=== PATIENT | female | born 1935 | race Caucasian/White ===

== ENCOUNTER 2016-10-28 11:53 | Inpatient (IN) | payer OTHER, BC ==
[2016-10-28] MEDS ORDERED: ONDANSETRON 4 MG/2 ML VIAL IVP ONE (12:18)
--- NOTE | 2016-10-28 12:53 | EDPHY ---
H & P Time Seen by Provider: 10/28/16 12:51 HPI/ROS: Chief complaint. unable to eat HPI. 80-year-old female with nausea since October 23. She had a CT of her abdomen and pelvis that day with IV contrast and has been nauseated since. The indication for CT abdomen pelvis was chronic abdominal pain which she has had for many years. She has a history of IBS and chronic abdominal pain. She complains of pain to the left flank left mid abdomen and periumbilical area. She has chronic constipation. She has not had vomiting. No diarrhea. She uses laxatives nightly. She has also been short of breath for 6 months. No chest discomfort. No fever. Otherwise not ill. No urinary symptoms. Sent by her pain management physician today for IV hydration and nausea control. ROS Constitutional. no fever/chills, no weakness Eyes. no problems with vision ENT. no sore throat, no nasal drainage Cardiovascular. no chest pain Respiratory. Short of breath Abdominal. Abdominal pain with nausea but no vomiting or diarrhea . no problems urinating MS. no calf pain/swelling, no neck/back pain, no joint pain Skin. no rash Lymph. no swollen glands Neuro. no headache, no dizziness, no difficulty walking or with speech Past Medical/Surgical History: Past medical history significant for IBS, hypertension, appendectomy, cholecystectomy, hysterectomy, gastric paresis Regular physicians are in [place] Social History: , nonsmoker, no alcohol Smoking Status: Former smoker Physical Exam: General Appearance: Alert well-developed female mild distress vital signs are stable Eyes: Pupils equal and round no pallor or injection. ENT, Mouth: Mucous membranes are moist. Respiratory: There are no retractions, lungs are clear to auscultation. Cardiovascular: Regular rate and rhythm. Gastrointestinal: Abdomen is soft really without tenderness to palpation. No masses. Bowel sounds are normal Neurological: Awake and alert, sensory and motor exams grossly normal. Skin: Warm and dry, no rashes. Musculoskeletal: Neck is supple nontender. Extremities symmetrical, full range of motion. Psychiatric: Patient is oriented X 3, there is no agitation. Constitutional: Initial Vital Signs Temperature (C) 36.7 C 10/28/16 11:55 Heart Rate 79 10/28/16 11:55 Respiratory Rate 16 10/28/16 11:55 Blood Pressure 154/71 H 10/28/16 11:55 O2 Sat (%) 97 10/28/16 11:55 O2 Delivery Mode Room Air Allergies/Adverse Reactions: Antihistamines - Alkylamine Allergy (Verified 10/28/16 12:03) Antihistamines - Ethanolamine Allergy (Verified 10/28/16 12:03) Antihistamines - Ethylenediamine Allergy (Verified 10/28/16 12:03) Antihistamines - Piperazine Allergy (Verified 10/28/16 12:03) Antihistamines - Piperidine Allergy (Verified 10/28/16 12:03) Sulfa (Sulfonamide Antibiotics) Allergy (Verified 10/28/16 12:03) Home Medications: Medication Instructions Recorded Buprenorphine [Butrans 7.5 mcg/hr] 10/28/16 LYRICA 10/28/16 Medical Decision Making Procedures: IV normal saline. Zofran for nausea. Patient request medication for anxiety ED Course/Re-evaluation: Re-evaluation 2:15 p.m. the patient, the family and I discussed laboratory evaluation, treatment plan including recommendation for admission for her hyponatremia.. They expressed understanding and agreement I consulted and discussed case with Dr. Peoples, hospitalist, who agrees to the admission Differential Diagnosis: I considered malnutrition, electrolyte abnormality, depression. Patient has significant hyponatremia - Data Points Laboratory Results: Laboratory Results 10/28/16 12:10 10/28/16 12:10 10/28/16 12:10 WBC 4.72 10^3/uL (3.80-9.50) RBC 4.38 10^6/uL (4.18-5.33) Hgb 14.5 g/dL (12.6-16.3) Hct 39.5 % (38.0-47.0) MCV 90.2 fL (81.5-99.8) MCH 33.1 pg (27.9-34.1) MCHC 36.7 g/dL (32.4-36.7) RDW 12.2 % (11.5-15.2) Plt Count 250 10^3/uL (150-400) MPV 10.7 fL (8.7-11.7) Neut % (Auto) 74.5 H % (39.3-74.2) Lymph % (Auto) 18.6 % (15.0-45.0) Dubois % (Auto) 5.7 % (4.5-13.0) Eos % (Auto) 0.4 L % (0.6-7.6) Baso % (Auto) 0.4 % (0.3-1.7) Nucleat RBC Rel Count 0.0 % (0.0-0.2) Absolute Neuts (auto) 3.51 10^3/uL (1.70-6.50) Absolute Lymphs (auto) 0.88 L 10^3/uL (1.00-3.00) Absolute Monos (auto) 0.27 L 10^3/uL (0.30-0.80) Absolute Eos (auto) 0.02 L 10^3/uL (0.03-0.40) Absolute Basos (auto) 0.02 10^3/uL (0.02-0.10) Absolute Nucleated RBC 0.00 10^3/uL (0-0.01) Immature Gran % 0.4 % (0.0-1.1) Immature Gran # 0.02 10^3/uL (0.00-0.10) Sodium 123 L mEq/L (134-144) Potassium 3.9 mEq/L (3.5-5.2) Chloride 83 L mEq/L (97-110) Carbon Dioxide 26 mEq/l (22-31) Anion Gap 14 mEq/L (8-16) BUN 8 mg/dL (7-23) Creatinine 0.7 mg/dL (0.6-1.0) Estimated GFR > 60 Glucose 105 H mg/dL (70-100) Calcium 9.8 mg/dL (8.5-10.4) Total Bilirubin 2.0 H mg/dL (0.1-1.4) Conjugated Bilirubin 0.4 mg/dL (0.0-0.5) Unconjugated Bilirubin 1.6 H mg/dL (0.0-1.1) AST 59 H IU/L (14-46) ALT 35 IU/L (9-52) Alkaline Phosphatase 61 IU/L (38-126) Total Protein 7.4 g/dL (6.3-8.2) Albumin 4.4 g/dL (3.5-5.0) Lipase 79.0 IU/L (23-300) Medications Given: Discontinued Medications Sodium Chloride (Ns) 1,000 mls @ 0 mls/hr IV ONCE ONE PRN Reason: Wide Open Stop: 10/28/16 13:13 Last Admin: 10/28/16 13:16 Dose: 1,000 mls Lorazepam (Ativan Injection) 0.5 mg IVP EDNOW ONE Stop: 10/28/16 13:12 Last Admin: 10/28/16 13:26 Dose: Not Given Ondansetron HCl (Zofran) 4 mg IVP EDNOW ONE Stop: 10/28/16 12:19 Last Admin: 10/28/16 12:21 Dose: 4 mg Departure - Departure Disposition: [facility] Inpatient Acute Clinical Impression: Hyponatremia Condition: Fair
[2016-10-28] MEDS ORDERED: LORazepam 2 MG/ML INJ IVP ONE (13:11)
[2016-10-28] MEDS ORDERED: NS 1,000 ML IV ONE (13:12)
[2016-10-28 13:25] LABS: % IMMATURE GRANULYOCYTES 0.4 % (0.0-1.1); ABSOLUTE IMMATURE GRANULOCYTES 0.02 10^3/uL (0.00-0.10); ADD DIFF? NO; ADD MORPH? NO; ADD SCAN? NO; ATYPICAL LYMPHOCYTE FLAG 10 (0-99); FRAGMENT RBC FLAG 0 (0-99); HEMATOCRIT 39.5 % (38.0-47.0); HEMOGLOBIN 14.5 g/dL (12.6-16.3); LEFT SHIFT FLG 0 (0-99); LIPEMIA HEMOLYSIS FLAG 90 (0-99); MEAN CELL HEMOGLOBIN 33.1 pg (27.9-34.1); MEAN CELL HEMOGLOBIN CONCENTR. 36.7 g/dL (32.4-36.7); MEAN CELL VOLUME 90.2 fL (81.5-99.8); MEAN PLATELET VOLUME 10.7 fL (8.7-11.7); PLATELET CLUMPS FLAG 0 (0-99); PLATELET COUNT 250 10^3/uL (150-400); RED BLOOD CELL COUNT 4.38 10^6/uL (4.18-5.33); RED CELL DISTRIBUTION WIDTH 12.2 % (11.5-15.2)
[2016-10-28 13:32] LABS: ALANINE AMINOTRANSFERASE 35 IU/L (9-52); ALBUMIN 4.4 g/dL (3.5-5.0); ALKALINE PHOSPHATASE 61 IU/L (38-126); ANION GAP 14 mEq/L (8-16); ASPARTATE AMINOTRANSFERASE 59 IU/L (14-46); BILIRUBIN-CONJUGATED 0.4 mg/dL (0.0-0.5); BILIRUBIN-UNCONJUGATED 1.6 mg/dL (0.0-1.1); CALCIUM 9.8 mg/dL (8.5-10.4); CARBON DIOXIDE 26 mEq/l (22-31); CHLORIDE 83 mEq/L (97-110); CREATININE 0.7 mg/dL (0.6-1.0); GLOMERULAR FILTRATION RATE > 60; GLUCOSE 105 mg/dL (70-100); POTASSIUM 3.9 mEq/L (3.5-5.2); SODIUM 123 mEq/L (134-144); TOTAL PROTEIN 7.4 g/dL (6.3-8.2)
[2016-10-28 14:46] LABS: COLOR YELLOW; LEUKOCYTE ESTERASE,URINE NEGATIVE (NEGATIVE); NITRITE,URINE NEGATIVE (NEGATIVE)
[2016-10-28] MEDS ORDERED: ONDANSETRON 4 MG/2 ML VIAL IVP PRN (15:11)
[2016-10-28] MEDS ORDERED: ACETAMINOPHEN 325 MG TAB PO PRN (15:11)
[2016-10-28] MEDS ORDERED: NS 1,000 ML IV SCH (15:15)
[2016-10-28] MEDS: ONDANSETRON DISINTEGRATING 4 MG TAB PO PRN ×2 (15:34→20:47)
--- NOTE | 2016-10-28 15:58 | GHP ---
[f rep st] HISTORY AND PHYSICAL DATE OF ADMISSION: 10/28/2016 HISTORY OF PRESENT ILLNESS: The patient is an 80-year-old female with a history of nausea. She soun ds like she has a lifelong history of irritable bowel syndrome and gastroparesis for which she has be en treated, as well as some chronic pain for which she wears a buprenorphine patch. She has had a re cent GI evaluation that included CAT scan, and upper and lower endoscopy which was all somewhat unrem arkable. She presents at the behest of her daughter today with generalized weakness and nausea since October 23. It sounds like she has abdominal pain after eating and she has become fearful of eating and has lost weight over the last period of time. She also has a left mid abdominal pain that radiates aroun d to periumbilical pain. Her last bowel movement was this morning. It was not black. There was no blood. She and her husban d expressed a fair amount of dismay at the absence of diagnosis for her pain. She is not a smoker. She does not have any known vascular disease. REVIEW OF SYSTEMS: A complete 10-point review of systems was conducted and negative except as noted in the history of present illness. PAST MEDICAL HISTORY: 1. IBS. 2. Hypertension. 3. Chronic pain on buprenorphine. 4. Appendectomy. 5. Cholecystectomy. 6. Hysterectomy. 7. Gastroparesis. SOCIAL HISTORY: She lives in [place]. She is , nonsmoker. No alcohol. FAMILY HISTORY: Parents . PHYSICAL EXAMINATION: VITAL SIGNS: Temperature 36.7, blood pressure 154/71, pulse 89, breathing 16 times a minute, 97% on room air. GENERAL: No acute distress. HEENT: Sclerae anicteric. Oropharyn x clear. Mucous membranes moist. NECK: Supple without lymphadenopathy or JVD. LUNGS: Clear to au scultation bilaterally. HEART: S1, S2. ABDOMEN: Soft, scaphoid, nontender, nondistended. There i s no rebound or guarding. LOWER EXTREMITIES: Without edema. Calves are nontender. SKIN: Without rash. NEUROLOGIC: Nonfocal. White count 4.7, hematocrit 39.5, platelets 250,000. Sodium 123, potassium 3.9, chloride 83, bicarb 26, BUN 8, creatinine 0.7, glucose 105, bilirubin 2 that is predominantly unconjugated. AST is 59, A LT is 35, lipase is 79. Urinalysis is unremarkable. I have discussed the CAT scan findings with Dr. Rl Carranza. ASSESSMENT AND PLAN: This is an 80-year-old female with abdominal pain and hyponatremia. 1. Hyponatremia. This is poor diet intake in the setting of poor eating. She received 500 cc of no rmal saline in the emergency department. We will repeat her sodium now. We will check a urinalysis and follow. I suspect it will improve with hydration. 2. Abdominal pain. This sounds remarkably like intestinal angina given her food avoidance and weigh t loss and postprandial abdominal pain and otherwise negative workup as an outpatient. Granted I do not have access to that workup. 3. At this point in time, provide her with nausea relief and do a CT angio of the abdomen and furthe r evaluate. 4. Elevated bilirubin. I suspect this is Gilbert's, although I do note an elevated AST. Will get a look at her liver parenchyma with the CAT scan. 5. Prophylaxis. Pharmacologic prophylaxis indicated, enoxaparin 30 mg daily. 6. Disposition. Inpatient status. 7. Chronic pain. Continue her buprenorphine patch, provide her with MiraLAX daily. /[id number]/MODL
[2016-10-28] MEDS ORDERED: IOPAMIDOL (ISOVUE 370) 75 ML BTL IV ONE (16:28)
[2016-10-28 16:59] LABS: ANION GAP 11 mEq/L (8-16); CARBON DIOXIDE 27 mEq/l (22-31); CHLORIDE 89 mEq/L (97-110); CREATININE 0.7 mg/dL (0.6-1.0); GLOMERULAR FILTRATION RATE > 60; GLUCOSE 88 mg/dL (70-100); POTASSIUM 3.1 mEq/L (3.5-5.2); SODIUM 127 mEq/L (134-144)
[2016-10-28] MEDS: PROMETHAZINE HCL 25 MG/ML VIAL IVP PRN (18:36)
[2016-10-28] MEDS: PREGABALIN 50 MG CAP PO SCH ×2 (19:52→19:53)
[2016-10-28] MEDS: POLYETHYLENE GLYCOL 3350 17 GM PKT PO SCH ×2 (19:52→19:53)
[2016-10-28 20:37] LABS: ANION GAP 9 mEq/L (8-16); CALCIUM 8.8 mg/dL (8.5-10.4); CARBON DIOXIDE 27 mEq/l (22-31); CHLORIDE 91 mEq/L (97-110); CREATININE 0.7 mg/dL (0.6-1.0); GLOMERULAR FILTRATION RATE > 60; GLUCOSE 83 mg/dL (70-100); POTASSIUM 3.5 mEq/L (3.5-5.2); SODIUM 127 mEq/L (134-144)
[2016-10-29] MEDS: PROMETHAZINE HCL 25 MG/ML VIAL IVP PRN (00:43)
[2016-10-29 04:32] LABS: % IMMATURE GRANULYOCYTES 0.2 % (0.0-1.1); ABSOLUTE IMMATURE GRANULOCYTES 0.01 10^3/uL (0.00-0.10); ADD DIFF? NO; ADD MORPH? NO; ADD SCAN? NO; ATYPICAL LYMPHOCYTE FLAG 20 (0-99); FRAGMENT RBC FLAG 0 (0-99); HEMATOCRIT 34.4 % (38.0-47.0); HEMOGLOBIN 12.3 g/dL (12.6-16.3); LEFT SHIFT FLG 0 (0-99); LIPEMIA HEMOLYSIS FLAG 90 (0-99); MEAN CELL HEMOGLOBIN 33.3 pg (27.9-34.1); MEAN CELL HEMOGLOBIN CONCENTR. 35.8 g/dL (32.4-36.7); MEAN CELL VOLUME 93.2 fL (81.5-99.8); MEAN PLATELET VOLUME 10.3 fL (8.7-11.7); PLATELET CLUMPS FLAG 0 (0-99); PLATELET COUNT 210 10^3/uL (150-400); RED BLOOD CELL COUNT 3.69 10^6/uL (4.18-5.33); RED CELL DISTRIBUTION WIDTH 12.5 % (11.5-15.2)
[2016-10-29] MEDS: ONDANSETRON DISINTEGRATING 4 MG TAB PO PRN ×2 (05:29→10:05)
[2016-10-29 07:53] VITALS: TEMP 97.7
[2016-10-29] MEDS: PREGABALIN 50 MG CAP PO SCH (08:22)
[2016-10-29] MEDS ORDERED: BUPRENORPHINE TD SCH (09:00)
[2016-10-29] MEDS ORDERED: MULTIVITAMINS 1 EACH TAB PO SCH (09:00)
[2016-10-29] MEDS ORDERED: TRIAMTERENE/HCTZ 37.5/25 1 EACH CAP PO SCH (09:00)
[2016-10-29] MEDS ORDERED: ENOXAPARIN 30 MG/0.3 ML SYR SC SCH (09:00)
[2016-10-29 11:25] VITALS: BP 115/52; PULSE 71; RESP 16; O2SAT 93
--- NOTE | 2016-10-29 17:11 | GDS ---
[f rep st] DISCHARGE SUMMARY DISCHARGE DIAGNOSES: 1. Hyponatremia, likely multifactorial in the setting of hydrochlorothiazide use and poor oral intak e. 2. Resolved abdominal pain. 3. History irritable bowel syndrome. HOSPITAL COURSE AND STAY BY PROBLEM: Hyponatremia, nausea: Patient presented with a serum sodium of 123. She was treated with IV fluids and antiemetics. On hospital day #1, she was tolerating a regu lar diet. Her serum sodium has increased to 131. The patient is not having any abdominal pain. Dur ing this hospital stay, a CT angio of the abdomen was recommended to evaluate for mesenteric ischemia ; however, this was not done per patient request which I think is reasonable since she is no longer h aving any abdominal pain. I did advise them to hold her hydrochlorothiazide given this could be a ca use for hyponatremia as well. On hospital day #1, the patient states she feels better and would like to be discharged home. PHYSICAL EXAM: VITAL SIGNS: On day of discharge blood pressure 115/52, pulse 71, respiratory rate 1 6, O2 sat 93% on room air. ABDOMEN: Soft, nontender, nondistended. No guarding or rebound tenderne ss. Normoactive bowel sounds. PERTINENT LABS AND STUDIES DONE THIS HOSPITAL STAY: Serum sodium on admission was 123. Serum sodium on discharge was 131. AST was 59, ALT 35, unconjugated bili 1.6. DISCHARGE MEDICATIONS: Please refer to discharge medication reconciliation in [facility] for full deta ils. Below is a preliminary list. Home medications that have been held: Triamterene/hydrochlorothiazide. DISCHARGE INSTRUCTIONS: The patient will be discharged home, where she should follow up with her [facility] provider next week for blood pressure monitoring. Per [place] recommendations, her target blo od pressure should be less than 150/90. She should also have further followup of her abdominal pain if this persists, as well as repeat monitoring of her LFTs given mild elevation in her AST and elevat ed bilirubin levels. /[id number]/MODL
== END 2016-10-29 12:29 | disposition home or self-care (01) | DRG 641 ==
LOC: F2W 15:15
PROVIDERS: ADMIT Internal Medicine; ATTEND Internal Medicine
DX: E87.1 Hypo-osmolality and hyponatremia (principal); G89.29 Other chronic pain; K58.1 Irritable bowel syndrome with constipation; T50.2X5A Adverse effect of carbonic-anhydrase inhibitors, benzothiadiazides and other diuretics, initial encounter
CPT/HCPCS: 96374; 97161-GP; G8978-GP-CI; G8979-GP-CI; G8980-GP-CI; J1650; J2405; J2550

== ENCOUNTER 2016-12-13 11:29 | Inpatient (IN) | payer OTHER, BC ==
[2016-12-13] MEDS ORDERED: ONDANSETRON 4 MG/2 ML VIAL IVP PRN (14:22)
[2016-12-13] MEDS ORDERED: ACETAMINOPHEN 325 MG TAB PO PRN (14:22)
[2016-12-13] MEDS ORDERED: ONDANSETRON DISINTEGRATING 4 MG TAB PO PRN (14:22)
[2016-12-13 15:29] LABS: HEMATOCRIT 37.4 % (38.0-47.0); HEMOGLOBIN 12.8 g/dL (12.6-16.3); MEAN CELL HEMOGLOBIN CONCENTR. 34.2 g/dL (32.4-36.7); MEAN CELL VOLUME 99.5 fL (81.5-99.8); RED BLOOD CELL COUNT 3.76 10^6/uL (4.18-5.33)
[2016-12-13] MEDS: LORazepam 0.5 MG TAB PO PRN ×2 (16:29→22:40)
[2016-12-13] MEDS: HYDROmorphONE/DILAUDID 1 MG/ML SYR IVP PRN ×2 (16:30→22:40)
[2016-12-13 16:42] LABS: ALANINE AMINOTRANSFERASE 195 IU/L (9-52); ALBUMIN 3.6 g/dL (3.5-5.0); ALKALINE PHOSPHATASE 179 IU/L (38-126); ANION GAP 7 mEq/L (8-16); ASPARTATE AMINOTRANSFERASE 86 IU/L (14-46); BILIRUBIN,TOTAL 1.5 mg/dL (0.1-1.4); CALCIUM 9.1 mg/dL (8.5-10.4); CARBON DIOXIDE 26 mEq/l (22-31); CHLORIDE 94 mEq/L (97-110); CREATININE 0.6 mg/dL (0.6-1.0); GLOMERULAR FILTRATION RATE > 60; GLUCOSE 79 mg/dL (70-100); POTASSIUM 3.7 mEq/L (3.5-5.2); SODIUM 127 mEq/L (134-144); TOTAL PROTEIN 6.3 g/dL (6.3-8.2)
[2016-12-13] MEDS ORDERED: ZOLPIDEM TARTRATE 5 MG TAB PO PRN (17:33)
--- NOTE | 2016-12-13 18:28 | GHP ---
DATE OF ADMISSION: 12/13/2016 CHIEF COMPLAINT: Acute on chronic abdominal pain, liver lesion. HISTORY OF PRESENT ILLNESS: The patient is an 81-year-old female with extensive abdominal history followed by her billing representative, Dr. Romo, as well as a pain specialist in the [place] area. Her abdominal history includes IBS, gastritis, gastroduodenitis, chronic constipation and chronic pain. She presented to [facility] on 12/12 with worsening of her normal pain. She was unable to stand or ambulate due to the pain. It is mainly in the left side of her abdomen radiating to the epigastric region. When I spoke with her, she says it was all over. There was no radiation. She has had some mild radiation to the pelvic region bilaterally. The pain is sharp , 10/10. She always chronically has pain but this was more severe. She says the pain is worse than labor pains. She has intermittent nausea. She has had no diarrhea. She actually takes MiraLAX daily for constipation. The pain is worse with lying down and after eating dinner. It improves with walking. She has been more tired recently. She eats small meals every 1 to 2 hours. Denies dysuria. No hematemesis, melena or hematochezia. 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 Also gastroparesis dating back to 2006. Per review of her outside hospital reports, CT abdomen with contrast showed incidental finding of an enhancing mass in the right lobe of the liver, possibly hemangioma. Subsequent abdominal ultrasound showed mild dilatation of biliary tree with absent gallbladder. Hemangioma on CT was not seen on the ultrasound. There was a 1.7 x 2.6 liver lesion in the lateral aspect of the right lobe. The patient was going to undergo MRA but could not tolerate the procedure due to claustrophobia. Thus, she was transferred here for further evaluation. She has had negative hepatitis B and C. REVIEW OF SYSTEMS: I completed a 10-point review of systems, negative except as noted in HPI. PAST MEDICAL HISTORY: IBS, hypertension, chronic pain, gastroparesis, celiac artery stenosis 40% to 50%, anorexia, gastritis, gastroduodenitis, anorexia nervosa, pulmonary nodule incidentally noted in November 2016, anxiety, chronic back pain, hyperlipidemia, glaucoma, bilateral hearing loss, hypertension, hypercalcemia, chronic hyponatremia. PAST SURGICAL HISTORY: 1. Cataract surgery, left side. 2. Mechanical vitrectomy, left side in 2005. 3. Total abdominal hysterectomy-BSO in the . 4. Cholecystectomy. 5. Appendectomy. ALLERGIES: Lidocaine patch, paroxetine, sulfites. SOCIAL HISTORY: Lives in [place] with her . Quit smoking 22 years ago. No alcohol or illicits. FAMILY HISTORY: No cancers. MEDICATIONS: MiraLAX daily, Zofran p.r.n., multivitamin, lisinopril 20 mg daily , eszopiclone 2 mg at bedtime. PHYSICAL EXAMINATION: VITAL SIGNS: Temperature 36.6, blood pressure 147/82, heart rate is in the 80s. Respirations 12. 96% on 1 L. GENERAL: The patient in no acute distress, thin, cachectic. Mildly anxious. HEENT: PERRLA. EOMI. Left pupil is irregular. Dry mucous membranes. NECK: Supple. No lymphadenopathy. CV: Regular rate and rhythm. No murmurs, gallops, or rubs. LUNGS: Clear to auscultation. ABDOMEN: Soft. Diffusely tender throughout but no rebound or guarding. No hepatosplenomegaly. Positive bowel sounds. She has prior abdominal scars. : No suprapubic or CVA tenderness. SKIN: Warm and dry. Poor skin turgor. 2 through 12 intact. PSYCHIATRIC: Alert and oriented x3. Flat affect. OUTSIDE HOSPITAL LABORATORY DATA: AST 159, ALT 287. Bilirubin 1.6 with a direct of 0.2. Normal lipase. Negative UA. OUTSIDE IMAGING: Right upper quadrant ultrasound: Mild dilatation of the biliary tree, extrahepatic, intrahepatic. Hemangioma identified on CT is not demonstrated on this scan. A 1.7 cm x 2.6 cm hypoechoic lesion in the superior/ lateral aspect of the right lobe of the liver. The ultrasound was on 2016. CT abdomen and pelvis dated November 27, 2016: Oval enhancing mass in the right lobe of the liver, possibly hemangioma, measuring 27 x 16 mm. ASSESSMENT AND PLAN: 1. Right lobe liver lesion: newly demonstrated on an ultrasound at an outside hospital. There was a question of hemangioma on prior scan in November 2016. OSH tried to attemept MRCP, but she did not tolerate due to claustrophobia. Check AFP. Transaminitis still present today. Per outside hospital records, she has had negative hepatitis and C serologies. 2. Acute on chronic abdominal pain: Differential was broad considering significant abdominal history.Would not expect this amount of pain with liver lesion. Of more concern would be progression of her known celiac artery stenosis (40-50% in 2007). Treat acute pain with low-dose IV opioids. We will continue her daily MiraLAX. Lipase was normal. Considered MRA, but she has severe claustrophobia and wants to be "knocked out" for scan; I do not think she will tolerate. She has reaction to iodine contrast including LE and nausea; per discussion with daughter and , will proceed with CT triple phase. Pre -medicate with Zofran. 3. History of duodenitis. She is not on a PPI. We will start that here. 4. Hypovolemic hyponatremia. This is chronic for patient. Suspect this is due to poor p.o. intake. She has dry mucous membranes and poor skin turgor. I will give gentle IV fluids. Check urine lytes. 5. Insomnia. Continue home medications. 6. Hyperbilirubinemia, 1.5 here today. Again, we will obtain further imaging. 7. Severe protein caloric malnutrition: weight loss >7.5% in 3 months, < 50% of recommended food intake. Suspect underlying anorexia nervousa. Daughter has contacted ACUTE eating disorder unit at [facility]. 8. Transaminitis: can be seen with anorexia. Neg Hep serologies per OSH records. Await imaging. 8. Diet: Regular. 9.. Deep venous thrombosis prophylaxis: Lovenox. DISPOSITION: The patient warrants observation admission given acute on chronic abdominal pain warranting further imaging. /[id number]/MODL MTDD
[2016-12-13] MEDS ORDERED: NS 1,000 ML IV SCH (19:00)
[2016-12-13] MEDS: POLYETHYLENE GLYCOL 3350 17 GM PKT PO SCH (22:40)
[2016-12-14] MEDS: HYDROmorphONE/DILAUDID 1 MG/ML SYR IVP PRN ×5 (05:02→23:13)
[2016-12-14] MEDS: LORazepam 0.5 MG TAB PO PRN ×3 (05:02→20:39)
[2016-12-14 05:17] LABS: ALANINE AMINOTRANSFERASE 194 IU/L (9-52); ALBUMIN 3.1 g/dL (3.5-5.0); ALKALINE PHOSPHATASE 174 IU/L (38-126); ANION GAP 6 mEq/L (8-16); ASPARTATE AMINOTRANSFERASE 105 IU/L (14-46); BILIRUBIN,TOTAL 1.3 mg/dL (0.1-1.4); CALCIUM 8.7 mg/dL (8.5-10.4); CARBON DIOXIDE 29 mEq/l (22-31); CHLORIDE 96 mEq/L (97-110); CREATININE 0.6 mg/dL (0.6-1.0); GLOMERULAR FILTRATION RATE > 60; GLUCOSE 88 mg/dL (70-100); POTASSIUM 3.8 mEq/L (3.5-5.2); SODIUM 131 mEq/L (134-144); TOTAL PROTEIN 5.7 g/dL (6.3-8.2)
[2016-12-14] MEDS ORDERED: HYDROmorphONE/DILAUDID 1 MG/ML SYR IVP ONE (08:30)
[2016-12-14] MEDS ORDERED: LISINOPRIL 20 MG TAB PO SCH (09:00)
[2016-12-14] MEDS ORDERED: IOPAMIDOL (ISOVUE-300) 100 ML BTL IV ONE (09:04)
[2016-12-14] MEDS: MULTIVITAMINS 1 EACH TAB PO SCH (10:00)
--- NOTE | 2016-12-14 10:54 | CPEKG ---
Heart Rate: 70 RR Interval: 857 P-R Interval: 144 QRSD Interval: 68 QT Interval: 404 QTC Interval: 436 P Redding: 95 QRS Redding: 59 T Wave Redding: 70 EKG Severity - ABNORMAL ECG - EKG Impression: SINUS RHYTHM EKG Impression: MULTIPLE ATRIAL PREMATURE COMPLEXES EKG Impression: LEFT VENTRICULAR HYPERTROPHY Electronically Signed By: Ketan Rees 14-Dec-2016 15:37:35
[2016-12-14] MEDS ORDERED: MAGNESIUM HYDROXIDE 30 ML UDCUP PO PRN (13:52)
[2016-12-14] MEDS ORDERED: BISACODYL 10 MG SUPP PR PRN (13:52)
[2016-12-14] MEDS ORDERED: LACTULOSE 20 GM/30 ML UDCUP PO PRN (13:52)
[2016-12-14] MEDS ORDERED: POLYETHYLENE GLYCOL 3350 17 GM PKT PO PRN (13:52)
[2016-12-14] MEDS: oxyCODONE IR 5 MG TAB PO PRN ×2 (15:15→20:39)
--- NOTE | 2016-12-14 17:51 | HOSPPROG ---
Hospitalist Progress Note Assessment/Plan: 81 yo F with hx of chronic abdominal pain with IBS, gastritis, chronic constipation presenting with worsening abdominal pain # acute on chronic abdominal pain: abd ct performed showing constipation and indeterminant liver lesion but no other etiology for pain. They were able to evaluate vasculature which appears to be completely patent and does not provide further information. Will attempt to obtain op records to see what other testing has been performed. # right lobe liver lesion: nonspecific and apparently has been present previously (working on getting records), not amenable to biopsy. REcommended f/ u CT in 3 months to ensure stability # anorexia: patient having no appetite in the setting of above issues, has had significant weight loss. Daughter plans to get her into an eating disorder treatment unit, though unclear that there is a behavioral component to these issues # severe protein calorie malnutrition: BMI of 15, in setting of above, will ask for dietary consult # hypovolemic hyponatremia: improving, monitoring # h/o IBS/gastritis/duodenitis: may need to consider EGD if this has not been performed recently, again looking for records # elevated lfts: non specific pattern, mild transaminitis, bili normalized. Will continue to trend. Consider further imaging of liver after obtaining records # dispo: IP status, will need > 48 hours stay given multiple active comorbid conditions and complex decision making > 80 minutes spent in care of this patient, more than half in counseling patient and family and coordination of care. Patient was seen face to face and with family from 4:15-5pm and again from 2PM-2:20 in direct patient care and counseling patient and family around work up planned and test results already obtained. Subjective: patient contineus to have severe pain, requiring pain meds very frequently, not eating much Objective: Vital Signs Temp Pulse Resp BP Pulse Ox 36.6 C 92 16 96/64 L 90 L 12/14/16 16:56 12/14/16 16:56 12/14/16 16:56 12/14/16 17:00 12/14/16 16:56 Laboratory Results 12/13/16 15:15 12/14/16 04:47 12/13/16 12/14/16 12/15/16 05:59 05:59 05:59 Intake Total 1100 Output Total 1200 Balance -100 thin mild distress anicteric op clear rrr no mrg cta soft mild ttp +bs no cce warm dry well perfused oriented appropriate - Time Spent With Patient Time Spent with Patient: greater than 35 minutes Time Spent with Patient: Greater than 35 minutes spent on this patients care, greater than 50% of time spent counseling, educating, and coordinating care regarding the above mentioned plan. ICD10 Worksheet Patient Problems: Problems Problem Status Onset Hyponatremia Acute
[2016-12-14] MEDS: POLYETHYLENE GLYCOL 3350 17 GM PKT PO SCH (20:33)
[2016-12-14] MEDS: SENNOSIDES/DOCUSATE SODIUM TAB PO SCH (20:33)
[2016-12-15] MEDS: oxyCODONE IR 5 MG TAB PO PRN (04:54)
[2016-12-15 05:13] LABS: % IMMATURE GRANULYOCYTES 0.4 % (0.0-1.1); ABSOLUTE IMMATURE GRANULOCYTES 0.03 10^3/uL (0.00-0.10); ADD DIFF? NO; ADD MORPH? NO; ADD SCAN? NO; ATYPICAL LYMPHOCYTE FLAG 10 (0-99); FRAGMENT RBC FLAG 0 (0-99); HEMOGLOBIN 12.7 g/dL (12.6-16.3); LEFT SHIFT FLG 0 (0-99); LIPEMIA HEMOLYSIS FLAG 90 (0-99); MEAN CELL HEMOGLOBIN CONCENTR. 34.3 g/dL (32.4-36.7); MEAN CELL VOLUME 101.9 fL (81.5-99.8); MEAN PLATELET VOLUME 9.3 fL (8.7-11.7); PLATELET CLUMPS FLAG 10 (0-99); PLATELET COUNT 213 10^3/uL (150-400); RED BLOOD CELL COUNT 3.63 10^6/uL (4.18-5.33); RED CELL DISTRIBUTION WIDTH 13.9 % (11.5-15.2)
[2016-12-15 05:36] LABS: ALANINE AMINOTRANSFERASE 189 IU/L (9-52); ALBUMIN 2.9 g/dL (3.5-5.0); ALKALINE PHOSPHATASE 185 IU/L (38-126); ANION GAP 4 mEq/L (8-16); ASPARTATE AMINOTRANSFERASE 105 IU/L (14-46); BILIRUBIN,TOTAL 0.8 mg/dL (0.1-1.4); CALCIUM 7.7 mg/dL (8.5-10.4); CARBON DIOXIDE 30 mEq/l (22-31); CHLORIDE 100 mEq/L (97-110); CREATININE 0.6 mg/dL (0.6-1.0); GLOMERULAR FILTRATION RATE > 60; GLUCOSE 77 mg/dL (70-100); POTASSIUM 3.6 mEq/L (3.5-5.2); SODIUM 134 mEq/L (134-144); TOTAL PROTEIN 5.3 g/dL (6.3-8.2)
[2016-12-15] MEDS ORDERED: COSYNTROPIN 0.25 MG/2 ML SYRINGE IVP ONE (06:00)
[2016-12-15 06:05] LABS: CORTISOL-AM 16.6 ug/dL (4.5-22.7)
[2016-12-15 07:54] VITALS: BP 126/63; PULSE 88; RESP 16; TEMP 98.4; O2SAT 92
[2016-12-15] MEDS: MULTIVITAMINS 1 EACH TAB PO SCH (08:16)
[2016-12-15] MEDS: LORazepam 0.5 MG TAB PO PRN (08:16)
[2016-12-15] MEDS: HYDROmorphONE/DILAUDID 1 MG/ML SYR IVP PRN (08:17)
[2016-12-15] MEDS ORDERED: ENOXAPARIN 30 MG/0.3 ML SYR SC SCH (09:00)
[2016-12-15] MEDS: SENNOSIDES/DOCUSATE SODIUM TAB PO SCH ×2 (09:35→10:03)
[2016-12-15] MEDS ORDERED: morphINE SR 15 MG TAB PO SCH (10:30)
--- NOTE | 2016-12-15 10:52 | PDDCSUM ---
Discharge Summary Discharge Summary: Dates of service 12/13-12/15/16 Discharge dx: # acute on chronic abdominal pain # nonspecific liver lesion # anorexia # spcm # hypovolemic hyponatremia # elevated lfts Procedures performed: abd CT Consulations: None Hospital course by problem: # acute on chronic abdominal pain: reviewed op records including records from her GI and sounds like despite extensive w/u etiology is felt to be likely functional abd pain. Emmanuel stim negative, abd CT including evaluation of vasculature negative, w/u prior to admit including egd/colo negative. Does have gastroparesis and constipation likley contributing. Plan is for establishign care w/ [place] pain mgmt and consider celiac plexus block. Given ms contin/morphine IR at dc for now. Will also add bentyl given hx of IBS. Continue bowel regimen. Sounds as if these sxs have been present going on 20 years. # liver lesion: non specifc, does not have concering features, will need f/u ct in 3 mos to ensure stability # anorexia: patient having no appetite in the setting of above issues, has had significant weight loss. Daughter plans to get her into an eating disorder treatment unit, though unclear that there is a behavioral component to these issues # severe protein calorie malnutrition: BMI of 15, in setting of above, will ask for dietary consult # hypovolemic hyponatremia: improved, has been present in the past as well # h/o IBS/gastritis/duodenitis: may need to consider EGD if this has not been performed recently, again looking for records # elevated lfts: non specific pattern, mild transaminitis, bili normalized and has been trending down over the last months. Unclear if related to liver lesion or other etioloyg but as above extensive w/u from GI not clear dc home f/u with GI/PCP >45 minutes spent in dc of patient more than half in face to face counseling of pt and her as well as daughter on [facility] phone
[2016-12-15] MEDS ORDERED: DICYCLOMINE 10 MG CAP PO SCH (12:00)
== END 2016-12-15 13:24 | disposition home or self-care (01) | DRG 391 ==
LOC: INTOOBSV 13:21 → F1N 13:21 → OBSVTOIN 12-14 17:54
PROVIDERS: ADMIT Internal Medicine; ATTEND Internal Medicine
DX: K59.09 Other constipation (principal); K31.84 Gastroparesis; E43 Unspecified severe protein-calorie malnutrition; K76.9 Liver disease, unspecified; I10 Essential (primary) hypertension; R91.1 Solitary pulmonary nodule; E78.5 Hyperlipidemia, unspecified; E87.1 Hypo-osmolality and hyponatremia; Z87.891 Personal history of nicotine dependence; Z68.1 Body mass index [BMI] 19.9 or less, adult; G47.00 Insomnia, unspecified; I77.4 Celiac artery compression syndrome; G89.29 Other chronic pain; K58.9 Irritable bowel syndrome, unspecified
CPT/HCPCS: 82105-90; 97116-GP; 97162-GP; 97165-GO; G0378; G8978-GP-CI; G8978-GP-CJ; G8979-GP-CI; G8980-GP-CI; G8987-GO-CI; G8988-GO-CI; G8989-GO-CI; J0834; J1170; J1650; Q9967